=== PATIENT | male | born 1970 | race Caucasian/White ===

== ENCOUNTER 2020-03-23 11:10 | Emergency (ER) | payer OTHER, SELFPAY ==
--- NOTE | ~2020-03-23 | US_ITS ---
EXAMINATION: US venous doppler LE RT DATE: 03/23/2020 11:54 INDICATION: Right lower limb pain and swelling TECHNIQUE: Kee scale images without and with compression and Doppler images of the right lower extre mity veins were obtained. COMPARISON: None FINDINGS: The right common femoral vein, profunda femoral vein, femoral vein, popliteal vein, peronea l trunk, posterior tibial veins, and greater saphenous vein are patent. IMPRESSION: 1. Patent right lower extremity veins. No evidence of deep venous thrombosis. Reviewed, dictated and finalized at location B.
[2020-03-23 11:11] VITALS: BP 140/69; PULSE 86; RESP 14; TEMP 36.4; O2SAT 98
--- NOTE | 2020-03-23 11:24 | ED.LOWEXIN ---
HPI - Extremity Injury (Lower) General Chief Complaint: Extremity Injury, Lower Stated Complaint: right leg injury Time Seen by Provider: 03/23/20 11:18 History of Present Illness HPI Narrative: Patient presents with his for right posterior calf pain. 2 days ago he tripped over the dog kennel. His leg hurt right away. It started to swell. He is having difficulty bearing weight. He gauges the pain at 7 out of 10, but does not want any pain medication here. He said he took an ibuprofen at home. 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 He and his are also building their own home. He does not smoke cigarettes, drink alcohol, or do drugs. Related Data Home Medications Medication Instructions Recorded Confirmed fenofibrate nanocrystallized mg PO 03/23/20 fluoxetine mg 03/23/20 glimepiride mg 03/23/20 levothyroxine 03/23/20 losartan-hydrochlorothiazide tablet 03/23/20 lovastatin mg 03/23/20 omeprazole 03/23/20 03/23/20 sitagliptin-metformin [Janumet XR] tablet PO 03/23/20 Allergies Allergy/AdvReac Type Severity Reaction Status Date / Time fentanyl Allergy Intermediate Dyspnea / Verified 03/23/20 11:14 SOB Review of Systems Review of Systems: Narrative: CONSTITUTIONAL: Denies fever, chills, or sweats. EYES: Denies visual changes, redness, or discharge. ENT: Denies rhinorrhea, congestion, sore throat, or otalgia. CARDIOVASCULAR: Denies chest pain, palpitations, or edema. RESPIRATORY: Denies cough or dyspnea. GASTROINTESTINAL: Denies abdominal pain, nausea, vomiting, or diarrhea. GENITOURINARY: Denies dysuria or hematuria. SKIN: Denies rash or itching. MUSCULOSKELETAL: Denies back pain, joint pain, just the calf pain. NEUROLOGIC: Denies headache, numbness, or weakness. PSYCHIATRIC: Denies anxiety or depression. All systems reviewed & are unremarkable except as noted in HPI and below PMFSH Social History Social History (Updated 03/23/20 @ 11:32 by Letty Obando MD) Smoking status: Never smoker Alcohol intake: never Substance use: never Gender identity (if verbalized by the patient): Male Exam Narrative: Exam Narrative: GENERAL: Well-appearing, well-nourished, and in no acute distress. HEAD: Normocephalic, atraumatic. EYES: PERRLA and EOMI. right ptosis. ENT: Nares clear, no rhinorrhea or epistaxis. Mucous membranes moist. NECK: Supple. CHEST: Clear to auscultation. No respiratory distress. HEART: Regular rate and rhythm. No murmur heard. Normal peripheral pulses. ABDOMEN: Soft, nontender, nondistended, normal active bowel sounds. EXTREMITIES: Right posterior calf swollen and tender. SKIN: Warm, dry, no rash. NEURO: No focal deficits. Alert and oriented x3. PSYCH: Normal mood and affect. Const: General: no acute distress and alert Orientation/consciousness: patient oriented x3 Course Reevaluation(s) Reevaluation #1: Went in to tell the patient and his that there was no blood clot. He does not want any stronger pain medicine. 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 Date: 03/23/20 Time: 12:20 Vital Signs Vital signs: Vital Signs Temperature 97.6 F 03/23/20 11:11 Pulse Rate 86 03/23/20 11:11 Respiratory Rate 14 03/23/20 11:11 Blood Pressure 140/69 03/23/20 11:11 Pulse Oximetry 98 03/23/20 11:11 Temperature 97.6 F 03/23/20 11:11 Pulse Rate 78 03/23/20 12:01 Respiratory Rate 20 03/23/20 12:01 Blood Pressure 119/72 03/23/20 12:01 Pulse Oximetry 95 03/23/20 12:01 MDM - Extremity Injury (Lower) Medical Records Attestation: I reviewed the patient's medical records. Lab Data Attestation: I reviewed the patient's lab results. Result diagrams: 03/23/20 11:35 03/23/20 11:34 Labs: Lab Results 03/23/20 03/23/20 03/23/20 Range/Units 11:34 11:34 11:35 WBC 10.3 H (4.5-10.0) K/mm3 RBC 5.25 (4.6-6.20) M/mm3 Hgb 15.6 (14.0-18.0) g/dL Hct 45.1 (42.0-52.0)
--- NOTE | 2020-03-23 11:37 | PC.NURSE ---
pt in xray
[2020-03-23 11:40] LABS: Basophils Absolute Auto 0.1 K/mm3 (0.0-0.1); Basophils Percent Auto 0.5 % (0.2-1.2); Eosinophils Absolute Auto 0.1 K/mm3 (0-0.3); Eosinophils Percent Auto 0.9 % (0-4.4); Hematocrit 45.1 % (42.0-52.0); Hemoglobin 15.6 g/dL (14.0-18.0); Immature Granulocyte Absolute 0.03 K/mm3 (0.00-0.031); Immature Granulocyte Percent A 0.3 % (0-0.5); Lymphocytes Absolute Auto 0.92 K/mm3 (0.9-3.2); Lymphocytes Percent Auto 8.9 % (18.3-44.2); Mean Corpuscular HGB Conc 34.6 g/dl (32-36); Mean Corpuscular Hemoglobin 29.7 pg (26-34); Mean Corpuscular Volume 85.9 fl (80-100); Mean Platelet Volume 9.6 fl (7.4-10.4); Monocytes Absolute Auto 0.7 K/mm3 (0.1-0.6); Monocytes Percent Auto 7.1 % (2.6-8.5); Neutrophils Absolute Auto 8.5 K/mm3 (1.3-6.7); Neutrophils Percent Auto 82.3 % (45.5-73.1); Platelet Count Result 198 k/mm3 (150-375); Red Blood Count 5.25 M/mm3 (4.6-6.20); Red Cell Distribution Width 13.2 % (11.5-14.5); White Blood Count 10.3 K/mm3 (4.5-10.0)
[2020-03-23 11:50] LABS: INR 1.1; Prothrombin Time 13.6 Seconds (11.1-14.7)
[2020-03-23 11:53] LABS: Alanine Aminotransferase 103 U/L (4-50); Alkaline Phosphatase 108 U/L (38-126); Anion Gap 12.5 mmol/L (7-16); Aspartate Amino Transferase 73 U/L (17-59); Bilirubin,Total 0.9 mg/dL (0.2-1.3); Blood Urea Nitrogen 12 mg/dL (9-20); Calcium 8.5 mg/dL (8.4-10.2); Carbon Dioxide 26 mmol/L (22-30); Chloride 97 mmol/L (98-107); D Dimer 0.27 ug/mL (<0.48); Estimated CRCL calculation 142 ml/min; Estimated Glomerular Filt Rate > 60; Glucose 191 mg/dL (75-110); Potassium 3.5 mmol/L (3.4-5.0); Sodium 132 mmol/L (137-145)
[2020-03-23 12:01] VITALS: BP 119/72; PULSE 78; RESP 20; O2SAT 95
== END 2020-03-23 12:20 | disposition home or self-care (01) ==
PROVIDERS: Emergency Provider Emergency Medicine; PCP Family Medicine
DX: S86.111A Strain of other muscle(s) and tendon(s) of posterior muscle group at lower leg level, right leg, initial encounter (principal); Z79.84 Long term (current) use of oral hypoglycemic drugs; E11.9 Type 2 diabetes mellitus without complications; W18.41XA Slipping, tripping and stumbling without falling due to stepping on object, initial encounter
CPT/HCPCS: 36415; 80053; 85025; 85380; 85610; 93971; 99284